=== PATIENT | male | born 1960 | race Caucasian/White ===

== ENCOUNTER → 2021-04-04 15:06 | Outpatient (CLI) | payer BC, SELFPAY ==
--- NOTE | 2021-04-04 15:07 | DI.MRI.S_ITS ---
PROCEDURE: MR SHOULDER LT WO CON INDICATIONS: Pain in left shoulder TECHNIQUE: Noncontrast oblique coronal T2 fast spin echo with fat saturation, oblique sagittal T1 spin echo and T2 fast spin echo with fat saturation, axial T1 spin echo and T2 fast spin echo with fat saturation through the shoulder. COMPARISON: None. FINDINGS: Rotator cuff: Mild to moderate supraspinatus tendinopathy with small partial articular surface tears. [id number] infraspinatus tendinopathy with small partial articular surface tears. The subscapularis and teres minor tendons appear intact throughout. Sagittal images demonstrate no muscle atrophy. Bones and bursae: No bone marrow contusions or fractures. Fibrocystic change of the posterior humeral head. Moderate acromioclavicular joint degeneration with T2 hyperintense signal within the articulation. Trace subacromial-subdeltoid bursal fluid is present. Capsule and soft tissues: Labrum intact. The biceps labral complex is not well seen, possibly secondary to positioning, tear, or prior intervention. The rotator interval appears normal, without fibrosis. The coracoclavicular ligament is normal in thickness. IMPRESSION: 1. [id number] supraspinatus tendinopathy with small partial articular surface tears. 2. Mild to moderate infraspinatus tendinopathy with small partial articular surface tears. 3. Mild subacromial/subdeltoid bursitis. 4. Poor visualization of the biceps labral complex, may be secondary to positioning, tear, or prior intervention. 5. Moderate AC joint arthrosis. Dictated by: Jere Hayes M.D. on 04/04/2021 at 17:02 Approved by: Jere Hayes M.D. on 04/04/2021 at 17:11
== END ==
PROVIDERS: Referring Provider Orthopaedic Surgery; Visit Provider Orthopaedic Surgery
DX: M25.512 Pain in left shoulder (principal); M75.112 Incomplete rotator cuff tear or rupture of left shoulder, not specified as traumatic; M75.52 Bursitis of left shoulder
CPT/HCPCS: 73221

== ENCOUNTER → 2021-04-22 09:37 | Outpatient (CLI) | payer BC, SELFPAY ==
--- NOTE | 2021-04-22 | DI.MRI.S_ITS ---
PROCEDURE: MRFOOT LT WO CON INDICATIONS: Metatarsalgia, left foot TECHNIQUE: Noncontrast sagittal T1 spin echo and T2 fast spin echo with fat saturation, long-axis T1 spin echo and T2 fast spin echo with fat saturation, short-axis T1 spin echo and T2 fast spin echo with fat saturation through the forefoot. COMPARISON: None. FINDINGS: Image quality: Excellent. Bones and joints: [id number] osteoarthritic changes are noted involving forefoot joints more prominent at 1st MTP joint, 5th MTP joint, and 1st interphalangeal joint with joint space narrowing, subchondral sclerosis and cyst formations. No marrow edema. No metatarsal stress fracture. Soft tissues: The visualized plantar foot muscles demonstrate normal signal and bulk. Visualized flexor and extensor tendons appear intact, without tenosynovitis. The distal insertions of the peroneus brevis and longus tendons appear intact. The principal Lisfranc ligament appears intact. No soft tissue ganglion cysts or bursal fluid collections. Sagittal images demonstrate no evidence for plantar plate tears. IMPRESSION: 1. 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 No fracture or dislocation. No evidence of metatarsal stress fracture. No suspicious bony lesion. 2. Forefoot tendons and ligaments are grossly intact. No soft tissue mass or ganglion cyst. Dictated by: Vamshi Zabala M.D. on 04/22/2021 at 12:15 Approved by: Vamshi Zabala M.D. on 04/22/2021 at 12:18
== END ==
PROVIDERS: Referring Provider Podiatrist; Visit Provider Podiatrist
DX: M77.42 Metatarsalgia, left foot (principal); M19.072 Primary osteoarthritis, left ankle and foot; M89.672 Osteopathy after poliomyelitis, left ankle and foot; R26.2 Difficulty in walking, not elsewhere classified
CPT/HCPCS: 73718